=== PATIENT | female | born 2000 | race Two or more races ===

== ENCOUNTER 2023-04-25 18:51 | Emergency (ER) | payer OTHER ==
[~2023-04-25] VITALS: Ht 167.6 cm; Wt 73.0 kg
[2023-04-25] MEDS ORDERED: PRENA1 CHEW TA1.4 MG (19:27)
[2023-04-25 20:49] LABS: HEMATOCRIT 39.8 % (36.0-45.00); HEMOGLOBIN 13.8 g/dL (12.0-15.00); MEAN CELL VOLUME 85.6 fL (80.00-100.00); MEAN CORPUSCULAR HEMOGLOBIN 29.7 pg (27.00-32.0); MEAN CORPUSCULAR HGB CONC 34.7 g/dl (32.0-36.0); PLATELET COUNT 277 K/uL (150-450); RED BLOOD COUNT 4.65 M/uL (4.00-6.00); RED CELL DISTRIBUTION WIDTH 13.1 % (11.5-14.5)
[2023-04-25 21:11] LABS: URINE APPEARANCE Clear; URINE BILIRRUBIN Negative (NEGATIVE); URINE BLOOD Large; URINE COLOR Yellow; URINE GLUCOSE Negative (NEGATIVE); URINE LEUKOCYTE Large; URINE NITRATE Negative; URINE PROTEIN Negative (NEGATIVE); URINE UROBILINOGEN 0.2 E.U./dl
[2023-04-25 21:14] LABS: URINE BACTERIA 75.5 uL (0.0-1933); URINE EPITHELIAL CELLS 2.9 uL (0.0-38.8); URINE RBC 7.6 uL (0.0-20.8); URINE WBC 362.9 uL (0.0-23.2)
[2023-04-25] MEDS ORDERED: DUI500 PO (21:27)
== END 2023-04-25 21:42 | disposition home or self-care (01) ==
LOC: ER 18:52
PROVIDERS: General Practice
DX: O23.41 Unspecified infection of urinary tract in pregnancy, first trimester (principal); N39.0 Urinary tract infection, site not specified; Z3A.10 10 weeks gestation of pregnancy

== ENCOUNTER → 2023-05-07 | Outpatient (CLI) | payer OTHER ==
[~2023-05-07] MED LIST: DUI500 PO; PRENA1 CHEW TA1.4 MG
== END | disposition home or self-care (01) ==
LOC: PRENATAL 14:47
PROVIDERS: ATTEND Obstetrics & Gynecology Maternal & Fetal Medicine
DX: O36.80X0 Pregnancy with inconclusive fetal viability, not applicable or unspecified (principal); Z36.82 Encounter for antenatal screening for nuchal translucency; Z36 Encounter for antenatal screening of mother; Z3A.13 13 weeks gestation of pregnancy

== ENCOUNTER 2023-06-30 16:16 | Outpatient (CLI) | payer OTHER | END 2023-06-30 16:17 | disposition home or self-care (01) | LOC: PRENATAL 16:16 | PROVIDERS: ATTEND Obstetrics & Gynecology Maternal & Fetal Medicine | DX: O35.3XX0 Maternal care for (suspected) damage to fetus from viral disease in mother, not applicable or unspecified (principal); O44.00 Complete placenta previa NOS or without hemorrhage, unspecified trimester; Z3A.21 21 weeks gestation of pregnancy ==

== ENCOUNTER 2023-08-24 14:51 | Outpatient (CLI) | payer OTHER ==
[~2023-08-24] VITALS: Ht 165.1 cm; Wt 78.9 kg
[2023-08-24] MEDS ORDERED: PRENATAL TABLE1 EAC1 PO (15:25)
== END 2023-08-25 06:00 | disposition home or self-care (01) ==
LOC: OBS/DEL 14:51
PROVIDERS: ATTEND General Practice
DX: O26.893 Other specified pregnancy related conditions, third trimester (principal); O26.849 Uterine size-date discrepancy, unspecified trimester; O36.8199 Decreased fetal movements, unspecified trimester, other fetus; O60.00 Preterm labor without delivery, unspecified trimester; W19.XXXA Unspecified fall, initial encounter; Z3A.28 28 weeks gestation of pregnancy

== ENCOUNTER 2023-10-29 13:52 | Inpatient (IN) | payer OTHER ==
[~2023-10-29] VITALS: Ht 167.6 cm; Wt 3.2 kg
[~2023-10-29 13:52] MED LIST changes: +PRENATAL TABLE1 EAC1 PO
[2023-11-04] MEDS ORDERED: PRENATAL + DHA1 EAC1 PO (06:50)
[2023-11-04] MEDS ORDERED: ERYTHROMYCIN BASE 1 GM TUBE OP SCH (13:30)
[2023-11-04] MEDS ORDERED: CHLORHEXIDINE GLUCONATE 120 ML BOTTLE TP SCH (13:30)
[2023-11-04] MEDS ORDERED: RINGERS SOLUTION,LACTATED 1,000 ML IV SCH (13:30)
[2023-11-04] MEDS ORDERED: KETOROLAC TROMETHAMINE 30 MG VIAL IV SCH (13:30)
[2023-11-04] MEDS ORDERED: OXYTOCIN 1,000 ML IV SCH (13:30)
[2023-11-04] MEDS ORDERED: FAMOTIDINE/PF 20 MG/2 ML VIAL IV SCH (13:31)
[2023-11-04] MEDS ORDERED: ONDANSETRON HCL 2 MG/ML VIAL IV PRN (13:45)
[2023-11-04] MEDS ORDERED: PROMETHAZINE HCL 25 MG/ML AMPUL IV PRN (13:45)
[2023-11-04] MEDS ORDERED: MEPERIDINE HCL 25 MG/ML AMPUL IV PRN (13:45)
[2023-11-04] MEDS ORDERED: ERYTHROMYCIN BASE 1 GM TUBE OP ONE (14:30)
[2023-11-04] MEDS ORDERED: OXYTOCIN 10 UNITS/ML VIAL IV ONE (14:30)
[2023-11-04] MEDS ORDERED: CEFAZOLIN SODIUM 1,000 MG VIAL IV ONE (14:30)
[2023-11-04 21:05] LABS: HEMATOCRIT 34.3 % (36.0-45.00); MEAN CELL VOLUME 85.6 fL (80.00-100.00); MEAN CORPUSCULAR HEMOGLOBIN 29.9 pg (27.00-32.0); PLATELET COUNT 223 K/uL (150-450); RED BLOOD COUNT 4.01 M/uL (4.00-6.00); RED CELL DISTRIBUTION WIDTH 13.5 % (11.5-14.5)
[2023-11-05] MEDS ORDERED: OxyCODONE HCL/APAP UD (PERCOCET) PO PRN (07:45)
[2023-11-05] MEDS ORDERED: IBUprofen 800 MG TABLET PO PRN (07:45)
[2023-11-05] MEDS ORDERED: SIMETHICONE 125 MG CAPSULE PO SCH (09:00)
[2023-11-05] MEDS ORDERED: DOCUSATE SODIUM 100MG CAP PO SCH (09:00)
== END 2023-11-06 13:41 | disposition home or self-care (01) | DRG 788 ==
LOC: OB/GYN 13:52 → O/R 11-04 06:00 → OB/GYN 11-04 06:00
PROVIDERS: ADMIT General Practice; ATTEND General Practice
PROC: 4A1HXCZ Monitoring of Products of Conception, Cardiac Rate, External Approach (ICD-10-PCS; 2023-11-04)
PROC: 10D00Z1 Extraction of Products of Conception, Low, Open Approach (ICD-10-PCS; principal; 2023-11-04 11:30)
DX: O32.1XX0 Maternal care for breech presentation, not applicable or unspecified (principal); Z3A.39 39 weeks gestation of pregnancy; Z37.0 Single live birth; Z20.822 Contact with and (suspected) exposure to COVID-19